=== PATIENT | female | born 1940 | race Caucasian/White ===

== ENCOUNTER 2024-10-26 09:30 | Emergency (ER) | payer MEDICARE, SELFPAY ==
[2024-10-26 09:32] VITALS: BP 141/91; PULSE 102; RESP 18; TEMP 36.1; O2SAT 99; BMI 24.0
[2024-10-26 10:00] VITALS: O2SAT 100
--- NOTE | 2024-10-26 10:00 | CRLHL7_ITS ---
For Patients: As a result of the Century Cures Act, medical imaging exams and procedure reports are released immediately into your electronic medical record. You may view this report before your referring provider. If you have questions, please contact your health care provider. INDICATION: Vaginal bleeding TECHNIQUE: Ultrasound pelvis transvaginal for better assessment or to better visualize the endometrium. Grayscale and color Doppler imaging was performed. COMPARISON: None. FINDINGS: Uterus: 6.3 x 3 x 4.3 cm. Myometrium appears grossly unremarkable. Endometrium: The endometrium appears heterogeneous and thickened, measuring up to 13 mm. Fluid is seen within the endometrial canal. Right ovary: The right ovary is not visualized. Left ovary: The left ovary measures 3 x 3.1 x 2.2 cm. There is a simple appearing cyst measuring 1.7 x 1.4 x 1.5 cm. Cul-de-sac: No free fluid. IMPRESSION: Heterogeneous appearance of the endometrium, measuring up to 13 mm. Findings may represent blood products, however underlying mass is not excluded. Dictated by Tamara Swain MD @ 10/26/2024 11:43:28 AM Dictated by: Tamara Swain MD @ 10/26/2024 11:43:42 (Electronically Signed)
[2024-10-26] MEDS: 0.9 % SODIUM CHLORIDE 1000 ml 1,000 ML IV (10:20)
--- OUTSIDE RECORDS SUMMARY | 2024-10-26 10:20 | XMS_ITS | Clinical Summary ---
Author Organization [facility] Address [facility] [place] [address] Care Team Providers Care Combination Technician Name Role Phone Anushka Sadler MD Primary Care Provider [phone] [facility] Unavailable [phone] Allergies No known active allergies Medications multivitamin (MVI) tabletIndication s:vitamin deficiency prevention Take 1 tablet by mouth once daily. Active cholecalciferol (VITAMIN D3) 2,000 unit capsuleIndicatio ns:vitamin D deficiency Take 1 capsule by mouth once daily. Active Coenzyme Q10 10 mg capIndications:d yslipidemia Take 1 capsule by mouth once daily. 0 02/02/20 18 Active famotidine (PEPCID) 20 mg tabletIndication s:dyspepsia Take 1 Tablet (20 mg) by mouth 2 times daily. 180 Tablet 3 10/13/19 21 Active ferrous sulfate, 65 mg elemental, tabletIndication s:iron deficiency anemia Take 325 mg by mouth once daily with a meal. 10/24/19 19 Active magnesium oxide (MAG-OX 400) 400 mg tabletIndication s:hypomagnesemia Take 1 Tablet (400 mg) by mouth once daily. 0 01/12/20 21 Active Accu-Chek Kirsty Plus test strp stripIndications :Type 2 diabetes mellitus without complication, without long-term current use of insulin (HC) TEST BLOOD SUGAR EVERY DAY DIRECTED 100 Each 3 02/27/20 23 Active simvastatin (ZOCOR) 40 mg tabletIndication s:hypercholester olemia Take 1 Tablet (40 mg) by mouth at bedtime. 90 Tablet 3 11/27/19 24 Active ascorbic acid chewable (VITAMIN C) 500 mg tabletIndication s:vitamin C deficiency Chew 1 Tablet (500 mg) by mouth once daily. 03/15/20 24 Active acetaminophen (TYLENOL) 325 mg tablet Take 2 Tablets (650 mg) by mouth four times daily. AND give 650 mg by mouth two times daily as needed for pain Max acetaminophen dose: 4000mg in 24 hrs. 03/18/20 24 Active diclofenac topical (VOLTAREN) 1 % gelIndications:E ffusion of right knee Apply 4 g topically to affected area(s) four times daily. 50 g 1 04/04/20 24 Active gabapentin (NEURONTIN) 300 mg capsuleIndicatio ns:restless leg syndrome Take 1 Capsule (300 mg) by mouth three times daily. 270 Capsule 3 05/17/20 24 Active durable medical equipment (DME)Indications :Spinal stenosis, lumbar region, without neurogenic claudication D&E 16 standard wheelchair cushion 1 Each 05/29/20 24 Active aspirin (ECOTRIN) 81 mg enteric coated tabletIndication s:myocardial infarction prevention Take 81 mg by mouth once daily with a meal. Active oxybutynin XL (DITROPAN XL) 10 mg CR tabletIndication s:urinary urge incontinence Take 10 mg by mouth once daily. Active pramipexole (MIRAPEX) 0.25 mg tabletIndication s:restless leg syndrome Take 0.25 mg by mouth once daily. Active metFORMIN (GLUCOPHAGE) 500 mg tabletIndication s:Diabetes mellitus without complication (HC) Take 2 Tablets (1,000 mg) by mouth two times daily with meals. at 0800 & 1700 07/03/19 25 Active miconazole nitrate (CRITIC-AID CLEAR AF) 2 % ointmentIndicati ons:cutaneous candidiasis Apply topically to affected area(s) 2 times daily if needed (Blanka rash). 07/03/19 25 Active allopurinoL (ZYLOPRIM) 100 mg tabletIndication s:Acute idiopathic gout of right knee Take 1 Tablet (100 mg) by mouth once daily. 07/04/19 25 Active Active Problems Problem Noted Date Diagnosed Date Acute gout of right knee 06/29/2024 Severe sepsis 06/23/2024 Influenza 06/23/2024 DISHA (acute kidney injury) 06/23/2024 Mild dementia without behavi oral disturbance, psychotic disturbance, mood disturbance, or anxiety 04/04/2024 Confusion 03/09/2024 Peripheral sensory neuropathy 11/27/2023 OAB (overactive bladder) 11/27/2023 Normocytic anemia 07/24/2022 Thrombocytopenia 07/24/2022 Controlled type 2 diabetes m ellitus without complication, without long-term current use of insulin 10/15/2020 Sciatica, right side 12/24/2019 Proteinuria, unspecified 03/31/2017 GERD without esophagitis 07/26/2016 Essential (primary) hypertension 03/02/2012 Restless legs syndrome 08/16/2011 Hyperlipidemia, unspecified 12/30/2010 Spinal stenosis, lumbar re on, without neurogenic claudication 02/16/2010 Resolved Problems Problem Noted Date Diagnosed Date Resolved Date Pancreatitis 07/24/2022 11/27/2023 Normocytic anemia 07/09/2022 11/27/2023 Choledocholithiasis 07/09/2022 11/27/19 24 Hyperkalemia 01/06/2020 11/27/2023 Cauda equina syndrome 02/26/20102022 Immunizations Immunization Administration Dates Next Due COVID-19 VACCINE SPIKEVAX (M ODERNA 50MCG/0.5ML) 12YO+ PFS 05/17/2023 COVID-19 vaccine (Proacta NTech 30mcg/0.3mL) 12YO+ BIVALENT PF, MDV 04/28/2022 COVID-19 vaccine (Proacta NTech 30mcg/0.3mL) PF, MDV 04/14/2021,09/01/2020,08/11/2020 Influenza, High-dose Inactivated 019,03/27/2018,03/23/2017,2015,04/03/2014,03/07/2013,04/03/2012,0 03/25/2011 Influenza, IIV3 (Age >=3 years) 05/16/2006 Influenza, Inactivated AIIV4 (Age 65+ Years) Preserv Free 05/17/2023,04/20/2022,03/16/2021 Pneumococcal Poly,23-Valent (Pneumovax) 05/25/2021,06/29/2004 Pneumococcal conj 13-Valent (Prevnar 13) 04/03/2014 Td, Preservative Free (age > = 7 Years) 06/29/2004 Zoster (Shingrix-RZV, recombinant) 10/13/2020, Family History Medical History Relation Name Comments Cancer Father Cancer Mother Cancer-breast Mother Osteoporosis Mother Relation Name Status Comments Brother Alive Child Alive x 2 Father (Age 94) Mother (Age 78) breast,bon e and brain cancer Social History Tobacco Use Types Packs/Day Years Used Date Smoking Tobacco: Never Smokeless Tobacco: Never Tobacco Cessation:Counseling Given: Not Answered Alcohol Use Standard Drinks/Week Comments No 0 (1 standard drink = 0.6 oz pur e alcohol) PHQ-2 Answer Date Recorded PHQ-2 TOTAL SCORE 0 11/27/2023 Social Connections Answer Date Recorded Do you often feel lonely or isolated from those around you? 0 03/10/2024 Financial Resource Strain Answer Date R ecorded Difficulty of Paying Living Expenses 3 09/06/2023 Difficulty of Paying Living Expenses Not on file 09/06/2023 Food Insecurity Answer Date Recorded Do you worry your food will run out before you are able to buy more? 1 06/24/2024 Transportation Needs Answer Date Record ed Does lack of transportation keep you from medica l appointments? 1 06/24/2024 Does lack of transportation keep you from work, meetings or getting things that you need? 1 06/24/2024 Housing Stability Answer Date Recorded What is your housing situation today? 1 06/24/2024 Interpersonal Safety Answer Date Record ed Are you being hit, kicked, p ushed or yelled at (see row info)? No 06/23/2024 Interpersonal Safety Abuse 12 - 18 Not on file 06/23/2024 Interpersonal Safety Ambulatory Vulnerability No t on file 06/23/2024 Utilities Answer Date Recorded Do you have trouble paying f or utilities (for example, heat, electricity, water, phone)? 1 06/24/2024 Comments No Sex and Gender Information Value Date Recorded Sex Assigned at Not on file Legal Sex Female 6:03 AM EDGE STRIPPER Gender Identity Not on file Sexual Orientation Not on file Occupation Industry Job Start Date Job End Date retired Not on file Not on file Not on file Obstetrics History Para Term AB IAB SAB Ectopic Multiple Livin g Live Births 2 Date Outcome GA Total Labor Labor/2nd/3rd Weight Sex Type Anes PTL Alisa A1 A5 Name Clin Last Filed Vital Signs Vital Sign Reading Time Taken Comments Blood Pressure 153/70 07/03/2024 3:51 PM EDGE STRIPPER Pulse 95 07/03/2024 3:51 PM EDGE STRIPPER Temperature 36.9 C (98.5 F) 07/03/2024 3:51 PM EDGE STRIPPER Respiratory Rate 20 07/03/2024 3:51 PM EDGE STRIPPER Oxygen Saturation 97% 07/03/2024 3:51 PM EDGE STRIPPER Inhaled Oxygen Concentration - - Weight 70.9 kg (156 lb 4.8 oz) 07/01/2024 6:53 A M EDGE STRIPPER Height 170.2 cm (5' 7) 06/23/2024 12:26 PM EDGE STRIPPER Body Mass Index 24.48 06/23/2024 12:26 PM EDGE STRIPPER Plan of Treatment Health Maintenance Due Date Last Done Comments Tdap 09/13/1951 Tetanus booster 06/29/2014 06/29/2004 RSV vaccine for adults or (1 - 1-dose 75+ series) 09/13/2014 COVID-19 vaccine series ( season) 2024 05/17/2023, 04/28/2022, 04/14/2021, Additional history exists Depression screening for age 12+ 11/26/2024 11/27/2023, 10/26/2022, 11/01/2021, Additional history exists Medicare Wellness for age 65+ 11/27/2024 11/27/2023, 10/26/2022 Influenza Vaccine (Season Ended) 2025 05/17/2023, 04/20/2022, 03/16/2021, Additional history exists BMI (ht and wt on same day) for age 18+ 04/04/2025 04/04/2024, 11/27/2023, 09/06/2023, Additional history exists Zoster (shingles) series for age 50+ Completed 10/13/2020, 04/09/2020 Pneumococcal series for age 50+ Completed 05/25/2021, 04/03/2014, 06/29/2004 DEXA/DXA scan for age 65+ Completed 10/26/2022 Medical Devices Implanted Type Area Finish Photographer Device Identifier Shelf Expiration Date Model / Serial / Lot Stent Pancreatic [id number] Advanix Stra No Rachel Plst - [id number] Implanted:Qty: 1 on 07/10/2022 by Wily Emanuel MD at [facility] 03/12/2023 [id number] / / [id number] Procedures Procedure Name Priority Date/Time Associated Diagnosis Comments XR DXA BONE DENSITY 2 SITES AXIAL Routine 10/26/2022 3:05 PM CDT Menopause from Last 3 Months or Most Recently Relevant to Health Maintenance Results * XR DXA BONE DENSITY 2 SITES AXIAL [71326.1] (10/26/2022 3:05 PM CDT) Anatomical Region Laterality Modality Spine, HIPS, HIPL, HIPR Computed Radiography 10/26/2022 3:05 PM CDT Impressions 10/26/2022 3:42 PM CDT Low bone density (OSTEOPENIA). T score meets the WHO criteria for low bone density (osteopenia) at one or more measured sites. The risk of osteoporotic fracture increases approximately two-fold for each standard deviation decrease in T-score. Narrative 10/26/2022 3:42 PM CDT For Patients: As a result of the Cures Act, medical imaging exams and procedure reports are released immediately into your electronic medical record. You may view this report before your referring provider. If you have questions, please contact your health care provider. EXAM: XR DXA BONE DENSITY 2 SITES AXIAL LOCATION: [facility] DATE/TIME: 10/26/2022 3:05 PM CDT INDICATION: Height loss greater than one inch. DEMOGRAPHICS: Age- 82 years. Gender- Female. Menopausal status- Postmenopausal. COMPARISON: 10/11/2016 TECHNIQUE: Dual-energy x-ray absorptiometry (DXA) performed with routine technique. FINDINGS: DXA RESULTS -Lumbar Spine: L1-L2: BMD: 1.662 g/cm2. T-score: 4.1. Z-score: 5.0. -RIGHT Hip Total: BMD: 0.988 g/cm2. T-score: -0.2. Z-score: 1.3. -RIGHT Hip Femoral neck: BMD: 0.963 g/cm2. T-score: -0.5. Z-score: 1.1. -LEFT Hip Total: BMD: 0.733 g/cm2. T-score: -2.2. Z-score: -0.7. -LEFT Hip Femoral neck: BMD: 0.927 g/cm2. T-score: -0.8. Z-score: 0.8. WHO T-SCORE CRITERIA -Normal: T score at or above -1 SD -Osteopenia: T score between -1 and -2.5 SD -Osteoporosis: T score at or below -2.5 SD The World Health Organization (WHO) criteria is applicable to perimenopausal females, postmenopausal females, and men aged 50 years or older. INTERVAL CHANGE -There has been a 7.5% decrease in lumbar spine BMD. -There has been a 21.2% decrease in bilateral hip BMD. FRACTURE RISK -FRAX Results: The 10 year probability of major osteoporotic fracture is 14.9%, and of hip fracture is 2.6%, based on left femoral neck BMD. RECOMMENDATIONS Consider treatment if major osteoporotic fracture score is greater than or equal to 20%, and if the hip fracture score is greater than or equal to 3%. Procedure Note Burke Mccoy MD - 10/26/2022 For Patients: As a result of the Century Cures Act, medical imagingexams and procedure reports are released immediately into your electronicmedical record. You may view this report before your referring provider.If you have questions, please contact your health care provider. EXAM: XR DXA BONE DENSITY 2 SITES AXIAL LOCATION: [facility] DATE/TIME: 10/26/2022 3:05 PM CDT INDICATION: Height loss greater than one inch. DEMOGRAPHICS: Age- 82 years. Gender- Female. Menopausal status-Postmenopausal. COMPARISON: 10/11/2016 TECHNIQUE: Dual-energy x-ray absorptiometry (DXA) performed with routinetechnique. FINDINGS: DXA RESULTS -Lumbar Spine: L1-L2: BMD: 1.662 g/cm2. T-score: 4.1. Z-score: 5.0. -RIGHT Hip Total: BMD: 0.988 g/cm2. T-score: -0.2. Z-score: 1.3. -RIGHT Hip Femoral neck: BMD: 0.963 g/cm2. T-score: -0.5. Z-score: 1.1. -LEFT Hip Total: BMD: 0.733 g/cm2. T-score: -2.2. Z-score: -0.7. -LEFT Hip Femoral neck: BMD: 0.927 g/cm2. T-score: -0.8. Z-score: 0.8. WHO T-SCORE CRITERIA -Normal: T score at or above -1 SD -Osteopenia: T score between -1 and -2.5 SD -Osteoporosis: T score at or below -2.5 SD The World Health Organization (WHO) criteria is applicable toperimenopausal females, postmenopausal females, and men aged 50 years orolder. INTERVAL CHANGE -There has been a 7.5% decrease in lumbar spine BMD. -There has been a 21.2% decrease in bilateral hip BMD. FRACTURE RISK -FRAX Results: The 10 year probability of major osteoporotic fracture is14.9%, and of hip fracture is 2.6%, based on left femoral neck BMD. RECOMMENDATIONS Consider treatment if major osteoporotic fracture score is greater than orequal to 20%, and if the hip fracture score is greater than or equal to3%. IMPRESSION: Low bone density (OSTEOPENIA). T score meets the WHO criteria for low bonedensity (osteopenia) at one or more measured sites. The risk ofosteoporotic fracture increases approximately two-fold for each standarddeviation decrease in T-score. Jai Guajardo MD DEXA Final R esult from Last 3 Months or Most Recently Relevant to Health Maintenance Insurance MEDICARE PART A HB ONLY [facility] MR Advance Directives * Full Code (Latest Code Status on File) Date Activated Date Inactivated Comments 06/23/2024 3:36 PM 07/03/2024 6:52 PM Question Answer Comments Code Status Discussion: Reviewed Preferences * Full Code Date Activated Date Inactivated Comments 03/09/2024 11:48 PM 03/15/2024 4:11 PM Question Answer Comments Code Status Discussion: Reviewed Preferences * Full Code Date Activated Date Inactivated Comments 07/24/2022 5:05 PM 07/26/2022 2:46 PM Question Answer Comments Code Status Discussion: Reviewed Preferences * Full Code Date Activated Date Inactivated Comments 07/09/2022 10:13 PM 07/12/2022 2:25 PM Question Answer Comments Code Status Discussion: Reviewed Preferences * Full Code Date Activated Date Inactivated Comments 01/15/2010 8:33 PM 01/17/2010 3:32 PM Care Teams Combination Technician Relationship Specialty [place] [address] [place] [address] PCP - General Family Practice 11/27/23 [facility] [address] [place], [place] [id number] Occupational Therapy 03/18/24
--- OUTSIDE RECORDS SUMMARY | 2024-10-26 10:20 | XMS_ITS | Continuity of Care Document ---
Author Organization [facility]ie Address [address] [place] [address] Insurance Providers Payer Plan Claims Address Claims Phone Policy Number Group Number Relation Employer Guarantor Name Guarantor Guarantor Address Guarantor Phone MEDIC ARE PART A - HB USE ONLY ATTN: CLAIMS, [address], [place] [address] [phone] Self Sarina Ristow [address] [place] [address] HUMAN A GOLD MR [address] [address], [place] [address] [phone] Self Sarina Ristow [address] [place] [address] Human a Medic are PPO [address] [address], [place] [address] tel:[phone] [id number] Self Sarina Ristow [address] [place] [address] Problems Condition ICD9 code ICD10 code SNOMED code Start Date End Date S tatus Encephalopathy, unspecified G93.40 03/15/2024 Active Unspecified dementia without behavioral disturbance F03.90 03/15/2024 Active Disorientation, unspecified R41.0 03/15/2024 Active Type 2 diabetes mellitus without complications E11.9 03/14/2024 Act tom Pain in right knee M25.561 03/15/2024 Ac tive Essential (primary) hypertension I10 03/14/2024 Active Hyperlipidemia, unspecified E78.5 03/14/2024 Active Gastro-esophageal reflux disease without esophagitis K21.9 03/14/2024 Active Other hereditary and idiopathic neuropathies G60.8 03/14/2024 A ctive Hypomagnesemia E83.42 03/14/2024 Active Restless legs syndrome G25.81 03/14/2024 Active 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 03/14/2024 Active Vitamin deficiency, unspecified E56.9 03/15/2024 Active Vitamin D deficiency, unspecified E55.9 03/14/2024 Active Results No Results Allergies, adverse reactions, alerts No known allergies and adverse reactions Immunizations Vaccine Route Date Status COVID-19 Vaccine Unassigned Route of Administration Completed COVID-19 Vaccine Unassigned Route of Administration Completed COVID-19 Vaccine Unassigned Route of Administration Completed COVID-19 Vaccine Unassigned Route of Administration Completed COVID-19 Vaccine Unassigned Route of Administration Completed Pneumococcal Vaccine Unassigned Route of Administratio n 05/25/2021 Completed Pneumococcal Vaccine Unassigned Route of Administratio n 04/03/2014 Completed Pneumococcal Vaccine Unassigned Route of Administratio n 06/29/2004 Completed Zoster Vaccine Unassigned Route of Administration 09/25 Completed Zoster Vaccine Unassigned Route of Administration 03/26 Completed Medications Medication Instructions Route Dosage Frequency Start Date Stop Date Indications Status acetaminophen 325 mg tablet (acetaminophe n) 650 mg, oral, Four Times A Day, Max acetaminophen dose 4,000mg in 24hrs oral 1.0 6.0 h 03/28 Active acetaminophen 325 mg tablet (acetaminophe n) 650 mg, oral, Twice A Day - PRN, Max acetaminophen dose 4,000mg in 24hrs; N.O. Non-: Pharmacological Interventions 1=Warm blanket 2=Re-position 3=Ice pack 4=Warm pack oral 1.0 12.0 h 03/28 Active Aplisol (tuberculin ppd) 5 tub. unit /0.1 mL solution (Aplisol (tuberculin ppd)) 0.1 ml, intradermal, Once A Day Every 14 Days, Document Lot #, Expiration, and Distance Learning Unit Leader in the Preventive Health Module. intrader mal 1.0 1.0 d 03/28 Active ascorbic acid (vitamin C) 500 mg tablet,chewab le (ascorbic acid (vitamin C)) 500 mg, oral, Once A Day oral 1.0 1.0 d 03/28 Sequelae of vitamin C deficiency Active aspirin 81 mg tablet,delaye d release (DR/EC) (aspirin) 81 mg, oral, Once A Day, with a meal oral 1.0 1.0 d 03/28 Active aspirin 81 mg tablet,delaye d release (DR/EC) (aspirin) 81 mg, oral, Once A Day oral 1.0 1.0 d 03/15 Active cholecalcifer ol (vitamin D3) 50 mcg (2,000 unit) capsule (cholecalcife rol (vitamin D3)) 2,000 units, oral, Once A Day oral 1.0 1.0 d 03/28 Vitamin D deficiency, unspecified Active coenzyme Q10 10 mg capsule (coenzyme Q10) 10 mg, oral, Once A Day oral 1.0 1.0 d 03/28 Hyperlipidemia , unspecified Active diclofenac sodium 1 % gel (diclofenac sodium) 4 Grams, topical, Four Times A Day, Apply to RIGHT kneeDX: Pain topical 1.0 6.0 h 03/28 Active famotidine 20 mg tablet (famotidine) 20 mg, oral, Twice A Day, dx indigestion oral 1.0 12.0 h 03/28 Active ferrous sulfate 325 mg (65 mg iron) tablet,delaye d release (DR/EC) (ferrous sulfate) 325 mg, oral, Once A Day, take with a meal oral 1.0 1.0 d 03/28 Active gabapentin 300 mg capsule (gabapentin) 300 mg, oral, Three Times A Day oral 1.0 8.0 h 03/28 Other hereditary and idiopathic neuropathies Active hydrochloroth iazide 25 mg tablet (hydrochlorot hiazide) 25 mg, oral, Once A Day oral 1.0 1.0 d 03/28 Essential (primary) hypertension Active lidocaine 4 % adhesive patch,medicat ed (lidocaine) 1 patch, topical, Twice A Day, Apply one patch to right knee; ON 12hrs/OFF 12hrs Q24H for pain topical 1.0 12.0 h 03/21 Active lisinopril 40 mg tablet (lisinopril) 40 mg, oral, Once A Day oral 1.0 1.0 d 03/28 Essential (primary) hypertension Active magnesium oxide 400 mg magnesium tablet (magnesium oxide) 400 mg, oral, Once A Day oral 1.0 1.0 d 03/28 Hypomagnesemia Active metformin 500 mg tablet (metformin) 1000 mg, oral, Twice A Day, take with meals oral 1.0 12.0 h 03/28 Type 2 diabetes mellitus without complications Active Multiple Vitamins (multivitamin ) - tablet (Multiple Vitamins (multivitamin )) 1 tablet, oral, Once A Day oral 1.0 1.0 d 03/28 Vitamin deficiency, unspecified Active simvastatin 40 mg tablet (simvastatin) 40 mg, oral, At Bedtime oral 1.0 03/28 Hyperlipidemia , unspecified Active Vital Signs Date Vital Result Comment 03/28/2024 11:08 AM Temperature 97.1 [degF] Oxygen Saturation 98 % Respiratory Rate 16 /min Heart Rate 101 /min Blood Pressure Systolic 131 mm[Hg] Blood Pressure Diastolic 75 mm[Hg] 03/27/2024 11:54 AM Body Weight 160.4 [lb_av] Body Mass Index 25.12 kg/m2 03/27/2024 09:46 AM Temperature 97.1 [degF] Oxygen Saturation 99 % Respiratory Rate 18 /min Heart Rate 67 /min Blood Pressure Systolic 133 mm[Hg] Blood Pressure Diastolic 66 mm[Hg] 03/26/2024 10:28 AM Body Weight 161.4 [lb_av] Body Mass Index 25.28 kg/m2 03/26/2024 07:55 AM Temperature 97 [degF] Oxygen Saturation 98 % Respiratory Rate 18 /min Heart Rate 77 /min Blood Pressure Systolic 144 mm[Hg] Blood Pressure Diastolic 76 mm[Hg] 03/25/2024 09:48 AM Temperature 97 [degF] Oxygen Saturation 97 % Respiratory Rate 18 /min Heart Rate 92 /min Blood Pressure Systolic 150 mm[Hg] Blood Pressure Diastolic 82 mm[Hg] Body Weight 160.4 [lb_av] Body Mass Index 25.12 kg/m2 03/24/2024 09:59 AM Body Weight 159.8 [lb_av] Body Mass Index 25.03 kg/m2 03/24/2024 09:41 AM Temperature 97.1 [degF] Oxygen Saturation 98 % Respiratory Rate 16 /min Heart Rate 69 /min Blood Pressure Systolic 117 mm[Hg] Blood Pressure Diastolic 64 mm[Hg] 03/23/2024 10:15 AM Temperature 97 [degF] Oxygen Saturation 100 % Respiratory Rate 18 /min Heart Rate 75 /min Blood Pressure Systolic 156 mm[Hg] Blood Pressure Diastolic 63 mm[Hg] 03/23/2024 09:58 AM Body Weight 161.4 [lb_av] Body Mass Index 25.28 kg/m2 03/22/2024 10:37 AM Temperature 97.1 [degF] Oxygen Saturation 98 % Respiratory Rate 18 /min Heart Rate 109 /min Blood Pressure Systolic 125 mm[Hg] Blood Pressure Diastolic 72 mm[Hg] 03/22/2024 10:36 AM Body Weight 163 [lb_av] Body Mass Index 25.53 kg/m2 03/21/2024 09:02 AM Temperature 97.3 [degF] Oxygen Saturation 96 % Respiratory Rate 18 /min Heart Rate 94 /min Blood Pressure Systolic 132 mm[Hg] Blood Pressure Diastolic 89 mm[Hg] Body Weight 160 [lb_av] Body Mass Index 25.06 kg/m2 03/20/2024 09:20 AM Body Weight 163.4 [lb_av] Body Mass Index 25.59 kg/m2 03/20/2024 09:12 AM Temperature 97.3 [degF] Oxygen Saturation 99 % Respiratory Rate 18 /min Heart Rate 74 /min Blood Pressure Systolic 155 mm[Hg] Blood Pressure Diastolic 65 mm[Hg] 03/19/2024 08:35 AM Temperature 97.3 [degF] Oxygen Saturation 99 % Respiratory Rate 16 /min Heart Rate 75 /min Blood Pressure Systolic 154 mm[Hg] Blood Pressure Diastolic 83 mm[Hg] 03/19/2024 08:34 AM Body Weight 161 [lb_av] Body Mass Index 25.21 kg/m2 03/18/2024 08:12 AM Body Weight 162 [lb_av] Body Mass Index 25.37 kg/m2 03/17/2024 08:37 AM Body Weight 165 [lb_av] Body Mass Index 25.84 kg/m2 03/16/2024 09:49 AM Body Weight 167 [lb_av] Body Mass Index 26.15 kg/m2 03/16/2024 07:56 AM Body Height 67 [in_us] 03/15/2024 05:24 PM Body Weight 169 [lb_av] Body Mass Index 26.47 kg/m2 Social History No smoking Hx information available Encounters Type CPT Code Date Location Provider Indication s encounter report 03/15/2024 09:4 5 AM - 03/28/2024 10:00 AM Virginie Irizarry MD Advance Directives Directive Description Verification Date Supporting Document(s) Other Directive
--- NOTE | 2024-10-26 10:32 | ED.FEMALEGU ---
HPI - Female Genitourinary General Date Seen: 10/26/24 Chief complaint: Vaginal Bleeding Stated complaint: vaginal bleeding Time Seen by Provider: 10/26/24 09:31 Source: patient, EMS and RN notes reviewed Mode of arrival: EMS Limitations: no limitations History of Present Illness HPI Narrative: Patient is 84-year-old female who presents here for evaluation of bright red vaginal bleeding, it was a fair bit today at senior care in [place] where she was at. According to her the nurse told her that she had some spotting for few days previous this is a new problem she has never before had this she does not feel lightheaded, we have no idea how the quantify it although she said there is a big spot on the floor where she bled. She is nonweightbearing, is in the facility with her . Denies any falls or trauma denies being on any anticoagulants, no history of previous anemia, we have no record of her before. She tells my nurse that she has been to [facility] before. Told the nurse that she had some abdominal discomfort but she tells me she has none. Tells me she has had 2 previous vaginal deliveries. History of GE reflux, history of gout, history of restless legs. History of vitamin-D deficiency, history of hypomagnesemia, history of diabetes MD elicited complaint: vaginal bleeding Location of symptoms: external genitalia Severity: moderate Female Urogenital Radiation: Non-Radiating Vaginal bleeding: heavy and bright red Exacerbating factors: movement Relieving factors: none Associated symptoms: denies other symptoms Treatment prior to arrival: none Sexual activity: No Patient : No Related Data Home Medications ?Medication ?Instructions ?Recorded ?Confirmed allopurinol 10/26/24 cholecalciferol (vitamin D3) 10/26/24 coenzyme Q10 10/26/24 famotidine 10/26/24 gabapentin 10/26/24 magnesium 10/26/24 metformin 10/26/24 pramipexole 10/26/24 simvastatin 10/26/24 Previous Rx's ?Medication ?Instructions ?Recorded medroxyprogesterone 10 mg tablet 10 mg PO TID #15 tabs 10/26/24 (Provera) Allergies Allergy/AdvReac Type Severity Reaction Status Date / Time No Known Drug Allergies Allergy Verified 10/26/24 09:37 Review of Systems Status of ROS: Reports: 10 or more systems reviewed and unremarkable except as noted in History and below [facility] Social History Smoking Status: Never smoker How often do you have a drink containing alcohol: never AUDIT-C Alcohol total score: 0 Non-prescribed substance use: denies use Exam Narrative: Exam Narrative: On examination with nurse present in room 7, she appears a little bit pale, alert oriented GCS is 15/15 alert and oriented x3. Pupils equal round reactive to light her conjunctiva are are pale. Neck is supple oropharynx is normal, chest is clear bilaterally no wheezing crackles noted heart sounds no clicks murmurs or gallops, abdomen is entirely soft, no guarding no organomegaly noted. Vaginal exam shows bright red bleeding coming from the vagina, pediatric speculum exam is done, which shows the blood coming from the os which appears on the left lateral side. I would describe it as moderate. She tolerated this well. Skin reveals no petechiae rashes, moves all extremities independently and well 1+ edema of her lower extremities. Const: Vital Signs, click to edit/add: Vital Signs - 24 hr 10/26/24 09:32 10/26/24 10:00 10/26/24 10:39 Temperature 96.9 F L Pulse Rate [Pulse Oximeter] 102 H 99 Respiratory Rate 18 18 Blood Pressure [Le ft Upper Arm] 141/91 H 159/85 H Pulse Oximetry 99 100 100 Oxygen Delivery Me thod Room Air Room Air 10/26/24 13:10 Temperature Pulse Rate [Pulse Oximeter] 113 H Respiratory Rate 18 Blood Pressure [Le ft Upper Arm] 175/94 H Pulse Oximetry 96 Oxygen Delivery Me thod Room Air Documenting provider has reviewed patient's vital signs: yes Course Reevaluation(s) Time of Reevaluation #1: 13:03 Reevaluation #1: I discussed the case with my production planning manager, she recommended Provera, along with TXA, she says on her examination the bleeding is basically stopped at this point, hemoglobin repeat has dropped to 10.6, so this is within the realm of stability. Vital signs remained stable, endometrial biopsy is obtained by Gynecology, follow-up will be with him. Kyle NEVILLE phone number [phone] Cell Phone Consultations Consultation #1: from OBGYN was consult she came to the emergency room to see patient. Time: 12:25 Vital Signs Vital signs: Initial Vital Signs Temperature 96.9 F L 10/26/24 09:32 Temperature Source Temporal Artery Scan 10/26/24 09:32 Pulse Rate 102 H 10/26/24 09:32 Respiratory Rate 18 10/26/24 09:32 Blood Pressure 141/91 H 10/26/24 09:32 Blood Pressure Mean 107 H 10/26/24 09:32 Blood Pressure Position Supine 10/26/24 09:32 Pulse Oximetry 99 10/26/24 09:32 Oxygen Delivery Method Room Air 10/26/24 09:32 Vital Signs Temperature 96.9 F L 10/26/24 09:32 Pulse Rate 102 H 10/26/24 09:32 Respiratory Rate 18 10/26/24 09:32 Blood Pressure 141/91 H 10/26/24 09:32 Pulse Oximetry 99 10/26/24 09:32 Oxygen Delivery Method Room Air 10/26/24 09:32 Temperature 96.9 F L 10/26/24 09:32 Pulse Rate 113 H 10/26/24 13:10 Respiratory Rate 18 10/26/24 13:10 Blood Pressure 175/94 H 10/26/24 13:10 Pulse Oximetry 96 10/26/24 13:10 Oxygen Delivery Method Room Air 10/26/24 13:10 Medications Administered Medications: Discontinued Medications Generic Name Dose Route Start Last Admin Trade Name Rodrickq PRN Reason Stop Dose Admin Acetaminophen 650 mg 10/26/24 11:04 10/26/24 11:35 Acetaminophen 325 Mg Tablet PO 10/26/24 11:05 650 mg ONCE ONE Administration Sodium Chloride 1,000 mls @ 1,000 mls/hr 10/26/24 10:00 10/26/24 11:35 0.9 % Sodium Chloride 1000 Ml IV 10/26/24 10:59 Infused .Q1H SUZANNE Infusion MDM - Female Genitourinary MDM Narrative Medical decision making narrative: Differential diagnosis includes but is not limited to uterine fibroids, intrauterine , ectopic , placenta previa, spontaneous , and cancers of the uterus and cervix. This includes the life-threatening complications of hypovolemia secondary to bleeding, ectopic and cancer. Medical Records Attestation: I reviewed the patient's medical records. Lab Data Attestation: I reviewed the patient's lab results. Labs: Lab Results 10/26/24 10/26/24 Range/Units 10:20 12:10 WBC 7.03 8.03 (4.50-11.00) K/uL RBC 3.73 L 3.59 L (4.00-5.20) m/uL Hgb 11.1 L 10.5 L (12.0-16.0) gm/dL Hct 34.5 33.2 (33.0-51.0) % MCV 93 93 (80-100) fL MCH 30 29 (26-34) pg MCHC 32 32 (32-36) gm/dL RDW Coeff of Bry 15.4 15.4 (11.5-15.5) % Plt Count 276 268 (140-440) K/uL Neut % (Auto) 75.5 H 73.4 H (42.0-72.0) % Lymph % (Auto) 14.8 L 15.9 L (20-44) % Bee % (Auto) 6.5 7.5 (0.0-11.0) % Eos % (Auto) 2.8 2.6 (0.0-7.0) % Baso % (Auto) 0.3 0.5 (0.0-3.0) % Neut # (Auto) 5.30 5.90 (1.7-7.0) K/uL Lymph # (Auto) 1.00 1.30 (0.90-2.90) K/uL Bee # (Auto) 0.50 0.60 (0.00-0.90) K/UL Eos # (Auto) 0.20 0.21 (0.00-0.50) K/uL Baso # (Auto) 0.02 0.04 (0.00-0.30) K/uL Abs Immat Gran (auto) 0.01 0.01 (0.00-0.30) K/uL Imm/Tot Granulo (auto) 0.1 0.1 % INR 0.92 (0.91-1.10) APTT 30 (23-33) Seconds Sodium 138 (135-149) mmol/L Potassium 3.9 (3.6-5.1) mmol/L Chloride 101 (96-114) mmol/L Carbon Dioxide 28 (20-32) mmol/L Anion Gap 9 (7-15) mEq/L BUN 32 H (7-30) mg/dL Creatinine 0.8 (0.5-1.5) mg/dL Estimated Creat Clear 40.00 Estimated GFR 72 ml/min Glucose 179 H (60-115) mg/dL Calcium 10.0 (8.4-10.6) mg/dL Blood Type O Positive Antibody Screen NEGATIVE ECG Data Attestation: I personally reviewed and interpreted this ECG as follows: ECG interpretation date: 10/26/24 Interpretation: No old EKG available for comparison, EKG shows sinus rhythm with first-degree AV block, ventricular rate is 97, poor R-wave progression is noted across the precordial leads, with some mild ST wave changes. No acute changes Discharge Plan Discharge Clinical Impression: Vaginal bleeding, Dysfunctional uterine bleeding Patient Disposition: Home w/ Parent or Adult Condition: Stable Instructions: Abnormal (Dysfunctional) Uterine Bleeding (ED), Menorrhagia (ED), Endometrial Biopsy (DC) Additional Instructions: Home rest, suggestion of Provera by , follow-up her Gynecology, return here if increasing bleeding, Activity Level: Light activity Discharge Diet: Regular Prescriptions: New medroxyprogesterone [Provera] 10 mg tablet 10 mg PO TID Qty: 15 0RF No Action famotidine magnesium pramipexole simvastatin gabapentin metformin allopurinol cholecalciferol (vitamin D3) coenzyme Q10 Follow Up/Referrals: Martine Reyna MD [Primary Care Provider] - Melodie Xiong MD [Staff Physician] - Stand Alone Forms: [employer] Info Instructions
[2024-10-26 10:33] LABS: Basophils Absolute Auto 0.02 K/uL (0.00-0.30); Basophils Percent Auto 0.3 % (0.0-3.0); Eosinophils Percent Auto 2.8 % (0.0-7.0); Hematocrit 34.5 % (33.0-51.0); Hemoglobin* 11.1 gm/dL (12.0-16.0); Immature Granulocytes Abs Auto 0.01 K/uL (0.00-0.30); Immature Granulocytes Pct Auto 0.1 %; Lymphocytes Percent Auto 14.8 % (20-44); Mean Corpuscular HGB Conc 32 gm/dL (32-36); Mean Corpuscular Hemoglobin 30 pg (26-34); Mean Corpuscular Volume 93 fL (80-100); Monocytes Percent Auto 6.5 % (0.0-11.0); Neutrophils Percent Auto 75.5 % (42.0-72.0); Platelet Count* 276 K/uL (140-440); RDW Coefficient of Variation % 15.4 % (11.5-15.5); Red Blood Count 3.73 m/uL (4.00-5.20); White Blood Count* 7.03 K/uL (4.50-11.00)
[2024-10-26 10:35] LABS: Slide Review Reflex No
[2024-10-26 10:39] VITALS: BP 159/85; PULSE 99; RESP 18; O2SAT 100
[2024-10-26 10:40] LABS: Chloride* 101 mmol/L (96-114); Potassium* 3.9 mmol/L (3.6-5.1); Sodium* 138 mmol/L (135-149)
[2024-10-26 10:43] LABS: Anion Gap 9 mEq/L (7-15); Blood Urea Nitrogen* 32 mg/dL (7-30); Carbon Dioxide* 28 mmol/L (20-32); Creatinine* 0.8 mg/dL (0.5-1.5); Estimated Glomerular Filt Rate 72 ml/min; Glucose* 179 mg/dL (60-115)
[2024-10-26 11:12] LABS: INR 0.92 (0.91-1.10); Prothrombin Time 13.1 Seconds
[2024-10-26 11:13] LABS: Partial Thromboplastin Time* 30 Seconds (23-33)
[2024-10-26] MEDS: ACETAMINOPHEN 325 MG TABLET 650 MG PO (11:35)
--- NOTE | 2024-10-26 12:04 | P.GYNCN_ITS ---
COMB[facility] INFORMATION CENTER OFFICER - CN: HPI Data of Consult Time Seen by Provider: 12:00 Date Seen: 10/26/24 Patient: Other Consult date: 10/26/24 Primary Care Provider: Martine Reyna MD Consult Narrative Reason for consult: vaginal bleeding Narrative: Sarina Woodall is a 84 year old female who presents for acute onset of 1 episode of vaginal bleeding that started today. She is here with her son, Charlie, who is her medical power of deputy commonwealth's attorney as well. Reports that she's had an easy menopause and never had any episode of vaginal bleeding after cessation decades ago. She had 2 uncomplicated vaginal delivery. Sarina lives in a residential and is Noelle lift dependent. She does not go to the doctor's for regular evaluation. Does not remember last time she saw a export clerk. She feels well and denies being in any pain. Patient denies fever, chills, chest pain, SOB, n/v, headache or dizziness. Hgb 11.1 gm/dL Pelvic US today: FINDINGS: Uterus: 6.3 x 3 x 4.3 cm. Myometrium appears grossly unremarkable. Endometrium: The endometrium appears heterogeneous and thickened, measuring up to 13 mm. Fluid is seen within the endometrial canal. Right ovary: The right ovary is not visualized. Left ovary: The left ovary measures 3 x 3.1 x 2.2 cm. There is a simple appearing cyst measuring 1.7 x 1.4 x 1.5 cm. Cul-de-sac: No free fluid. IMPRESSION: Heterogeneous appearance of the endometrium, measuring up to 13 mm. Findings may represent blood products, however underlying mass is not excluded. Ideally, the postmenopausal endometrial thickness is 4 mm or less in a postmenopausal woman. With vaginal bleeding, the risk of carcinoma is ~7% if the endometrium is >5 mm and 0.07% if the endometrium is <5 mm Next step in diagnostic workup is endometrial biopsy. Both Sarina and Charlie requests that it be done today in the ED. They have significant issues with transporting Sarina around. Additionally, Charlie requests that if we call with results, we should call him as she doesn't answer her phone. cc:: CC: [facility] Social History Smoking Status: Never smoker How often do you have a drink containing alcohol: never AUDIT-C Alcohol total score: 0 Non-prescribed substance use: denies use Meds Home Medications and Allergies Home Medications ?Medication ?Instructions ?Recorded ?Confirmed ?Type allopurinol 10/26/24 History cholecalciferol (vitamin D3) 10/26/24 History coenzyme Q10 10/26/24 History famotidine 10/26/24 History gabapentin 10/26/24 History magnesium 10/26/24 History metformin 10/26/24 History pramipexole 10/26/24 History simvastatin 10/26/24 History Allergies Allergy/AdvReac Type Severity Reaction Status Date / Time No Known Drug Allergies Allergy Verified 10/26/24 09:37 [facility]FORMATION [facility] OFFICER - Exam Physical Exam: Vital signs: Temp Pulse Resp BP Pulse Ox O2 Del Method 96.9 F L 99 18 159/85 H 100 Room Air 10/26/24 09:32 10/26/24 10:39 10/26/24 10:39 10/26/24 10:39 10/26/24 10:39 10/26/24 10:39 Narrative: Physical exam: General: No acute distress Psych: Alert and oriented x3, full affect HEENT: Normocephalic, atraumatic Lungs: Unlabored breathing Neuro: No focal deficit. Mentating appropriately. Difficulty hearing. Limited mobility. Entirely reliant of myself and RN for positioning. Pelvic exam: Scant blood on pad but pad saturated with clear fluid. Patient is incontinent. Hypopigmentation in the vulvar area. Clitoris normal, urethral meatus normal. Labia minora and majora with erythema likely associated with contact dermatitis. Perineum and anus normal appearance. Vaginal introitus normal appearance. Vaginal pink and well rugated with copious amount of yellow fluid but not blood in vaginal vault. Cervix pink and without lesion - no active bleeding. Cervix was stenotic. Bimanual exam reveals uterus to be soft, nontender, mobile, anteverted, of normal size and texture. No palpable adnexal masses or tenderness. Procedure note: Endometrial biopsy We discussed risks of procedure, including bleeding, infection, discomfort. Consent obtained. Bimanual exam performed as noted above. Speculum inserted. Cervix visualized and cleansed with 3 Betadine soaked swabs. Endometrial biopsy pipelle passed to depth of 5 cm. Cervical stenosis noted. Dilation attempted with os Finders, still difficult to fully gain access to the uterus. Scant tissue obtained. Patient tolerated procedure well. [facility] OFFICER - Results Labs Labs: Short CBC 10/26/24 Range/Units 10:20 WBC 7.03 (4.50-11.00) K/uL Hgb 11.1 L (12.0-16.0) gm/dL Hct 34.5 (33.0-51.0) % Plt Count 276 (140-440) K/uL BMP 10/26/24 10:20 Sodium 138 Potassium 3.9 Chloride 101 Carbon Dioxide 28 BUN 32 H Creatinine 0.8 Glucose 179 H Calcium 10.0 Assessment and Plan Assessment and plan (1) Vaginal bleeding: Status: Acute Plan - Currently no active vaginal bleeding - Pending endometrial biopsy. Discussed with Sarina and Charlie that I was unable to obtain much tissue due to cervical stenosis. I worry that the sampling will not be adequate. In general, if I am unable to obtain adequate tissue from bedside endometrial biopsy, my next step would be to take the patient back to the operating room to obtain the sample. Charlie had thoughtful questions about whether pursuing these invasive interventions is appropriate for someone who is bedbound. I agree we should be critical of even minor surgery and make sure we are not incurring more harm. Reassuringly, she is no longer bleeding. Will see what the biopsy results shows, what her continued symptoms are, and continue with shared decision making on pt's care. - Agree with 1g of TXA and repeat CBC - F/u with [facility]. They prefer to coordinate f/u after hearing back about the sampling
[2024-10-26 12:33] LABS: Basophils Absolute Auto 0.04 K/uL (0.00-0.30); Basophils Percent Auto 0.5 % (0.0-3.0); Eosinophils Absolute Auto 0.21 K/uL (0.00-0.50); Eosinophils Percent Auto 2.6 % (0.0-7.0); Hematocrit 33.2 % (33.0-51.0); Hemoglobin* 10.5 gm/dL (12.0-16.0); Immature Granulocytes Abs Auto 0.01 K/uL (0.00-0.30); Immature Granulocytes Pct Auto 0.1 %; Lymphocytes Percent Auto 15.9 % (20-44); Mean Corpuscular HGB Conc 32 gm/dL (32-36); Mean Corpuscular Hemoglobin 29 pg (26-34); Mean Corpuscular Volume 93 fL (80-100); Monocytes Percent Auto 7.5 % (0.0-11.0); Neutrophils Percent Auto 73.4 % (42.0-72.0); Platelet Count* 268 K/uL (140-440); RDW Coefficient of Variation % 15.4 % (11.5-15.5); Red Blood Count 3.59 m/uL (4.00-5.20); White Blood Count* 8.03 K/uL (4.50-11.00)
[2024-10-26 12:34] LABS: Slide Review Reflex No
[2024-10-26 13:10] VITALS: BP 175/94; PULSE 113; RESP 18; O2SAT 96
[2024-10-26] MEDS: TRANEXAMIC ACID 100 MG/ML INJ 1000 MG IV (13:50)
[2024-10-26] MEDS: MEDROXYPROGESTERONE 5 MG TABLET 10 MG PO (14:23)
== END 2024-10-26 14:48 | disposition home or self-care (01) ==
PROVIDERS: Obstetrics & Gynecology; Emergency Provider Family Medicine; PCP Family Medicine
DX: N93.9 Abnormal uterine and vaginal bleeding, unspecified (principal)
CPT/HCPCS: 36415; 76830; 80048; 85025; 85610; 85730; 86850; 86900; 86901; 88305; 93005; 94761; 99284; A9270; J7030

== ENCOUNTER 2024-10-26 14:45 | Outpatient (CLI) | payer MEDICARE, SELFPAY | END 2024-10-26 14:46 | disposition home or self-care (01) | LOC: AMB 10-28 10:35 | PROVIDERS: PCP Family Medicine; Visit Provider Family Medicine | DX: N92.0 Excessive and frequent menstruation with regular cycle (principal); F03.90 Unspecified dementia, unspecified severity, without behavioral disturbance, psychotic disturbance, mood disturbance, and anxiety | CPT/HCPCS: A0425; A0428 ==